=== PATIENT | male | born 1990 | race African-American/Black ===

== ENCOUNTER 2020-11-04 11:57 | Emergency (ER) | payer BC ==
[2020-11-04 12:38] VITALS: BP 133/77; PULSE 70; RESP 18; TEMP 98
--- NOTE | 2020-11-04 12:40 | ED ---
General Adult HPI - General Stated complaint: back pain Time Seen by Provider: 11/04/20 12:35 Source: patient, RN notes reviewed Mode of arrival: ambulatory Limitations: no limitations - History of Present Illness Initial comments: 30-year-old male presents emergency Department Department for low back pain. Patient states his messing around with his nieces states that the step down her back. 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 Patient states that he has no bowel bladder incontinence or retention or saddle anesthesias. Patient is requesting work no. - Related Data Previous Rx's Medication Instructions Recorded Cephalexin [Keflex] 500 mg PO Q6HR #28 cap 07/09/15 Allergies Allergy/AdvReac Type Severity Reaction Status Date / Time No Known Allergies Allergy Verified 11/04/20 12:35 Review of Systems ROS Statement: Those systems with pertinent positive or pertinent negative responses have been documented in the HPI. ROS Other: All systems not noted in ROS Statement are negative. Past Medical History Past Medical History: No Reported History History of Any Multi-Drug Resistant Organisms: None Reported Past Surgical History: No Surgical Hx Reported Past Psychological History: No Psychological Hx Reported Smoking Status: Current every day smoker Past Alcohol Use History: Occasional Past Drug Use History: Marijuana General Exam Limitations: no limitations General appearance: alert, in no apparent distress Head exam: Present: atraumatic, normocephalic, normal inspection ENT exam: Present: normal exam, normal oropharynx, mucous membranes moist Neck exam: Present: normal inspection, full ROM. Absent: tenderness, meningismus, lymphadenopathy Respiratory exam: Present: normal lung sounds bilaterally. Absent: respiratory distress, wheezes, rales, rhonchi, stridor Cardiovascular Exam: Present: regular rate, normal rhythm, normal heart sounds. Absent: systolic murmur, diastolic murmur, rubs, gallop, clicks Back exam: Present: normal inspection, full ROM, tenderness, paraspinal tenderness. Absent: vertebral tenderness Neurological exam: Present: alert, oriented X3, CN II-XII intact Skin exam: Present: warm, dry, intact, normal color. Absent: rash Course Vital Signs 11/04/20 12:36 Temperature 98 F Pulse Rate 70 Respiratory 18 Rate Blood Pressure 133/77 O2 Sat by Pulse 100 Oximetry Medical Decision Making - Medical Decision Making Patient is stable for discharge. Patient has no red flag symptoms. Patient has a lumbar strain. Return parameters were discussed. Disposition Clinical Impression: Lumbar pain Disposition: HOME SELF-CARE Condition: Stable Instructions (If sedation given, give patient instructions): Back Pain (ED) Additional Instructions: Please return to the Emergency Department if symptoms worsen or any other concerns. Is patient prescribed a controlled substance at d/c from ED?: No Referrals: None,Stated [Primary Care Provider] - 1-2 days Time of Disposition: 12:39
== END 2020-11-04 12:45 | disposition home or self-care (01) ==
LOC: EC 11:57
DX: M54.5 Low back pain (principal); F17.200 Nicotine dependence, unspecified, uncomplicated; F12.90 Cannabis use, unspecified, uncomplicated
CPT/HCPCS: 99283

== ENCOUNTER 2021-03-31 18:50 | Emergency (ER) | payer BC, OTHER ==
[2021-03-31 19:30] VITALS: BP 133/82; PULSE 91; RESP 18; TEMP 98.1
[2021-03-31] MEDS ORDERED: ACET/COD 300 MG/30 MG STARTER PACK 6 TAB BTL PO STA (20:04)
[2021-03-31] MEDS ORDERED: PENICILLIN V POTASSIUM 250 MG TAB PO STA (20:04)
--- NOTE | 2021-03-31 20:05 | ED ---
ENT HPI - General Chief complaint: Dental/Oral Stated complaint: dental abscess Time Seen by Provider: 03/31/21 19:41 Source: patient, RN notes reviewed Mode of arrival: ambulatory Limitations: no limitations - History of Present Illness Initial comments: 30-year-old male presents emergency Department chief complaint of dental pain. Patient states his started overnight. He did have some soreness 3 days ago but states the swelling started. No difficulty breathing or swallowing patient has no fevers chills no other complaints he did take some Tylenol which improved her symptoms. - Related Data Previous Rx's Medication Instructions Recorded Cephalexin [Keflex] 500 mg PO Q6HR #28 cap 07/09/15 Ibuprofen [Motrin] 600 mg PO Q8HR PRN #20 tab 03/31/21 Penicillin V Potassium [Pen Vee K] 500 mg PO QID #40 tablet 03/31/21 Allergies Allergy/AdvReac Type Severity Reaction Status Date / Time No Known Allergies Allergy Verified 03/31/21 19:29 Review of Systems ROS Statement: Those systems with pertinent positive or pertinent negative responses have been documented in the HPI. ROS Other: All systems not noted in ROS Statement are negative. Past Medical History Past Medical History: No Reported History History of Any Multi-Drug Resistant Organisms: None Reported Past Surgical History: No Surgical Hx Reported Past Psychological History: No Psychological Hx Reported Smoking Status: Current every day smoker Past Alcohol Use History: Occasional Past Drug Use History: Marijuana General Exam Limitations: no limitations General appearance: alert, in no apparent distress Head exam: Present: atraumatic, normocephalic, normal inspection Eye exam: Present: normal appearance, PERRL, EOMI. Absent: scleral icterus, conjunctival injection, periorbital swelling ENT exam: Present: mucous membranes moist. Absent: normal oropharynx (Swallowing right lower mandibular region, poor dentition no drainable abscess) Neck exam: Present: normal inspection. Absent: tenderness, meningismus, lymphadenopathy Respiratory exam: Present: normal lung sounds bilaterally. Absent: respiratory distress, wheezes, rales, rhonchi, stridor Cardiovascular Exam: Present: regular rate, normal rhythm, normal heart sounds. Absent: systolic murmur, diastolic murmur, rubs, gallop, clicks Course Vital Signs 03/31/21 19:29 Temperature 98.1 F Pulse Rate 91 Respiratory 18 Rate Blood Pressure 133/82 O2 Sat by Pulse 99 Oximetry Medical Decision Making - Medical Decision Making Patient we treated for underlying dental infection. Patient started on Pen-Vee K was given Tylenol codeine and return parameters discussed. Disposition Clinical Impression: Dental abscess Disposition: HOME SELF-CARE Condition: Stable Instructions (If sedation given, give patient instructions): Dental Abscess (ED) Additional Instructions: Please return to the Emergency Department if symptoms worsen or any other concerns. Prescriptions: Ibuprofen [Motrin] 600 mg PO Q8HR PRN #20 tab PRN Reason: Pain Penicillin V Potassium [Pen Vee K] 500 mg PO QID #40 tablet Is patient prescribed a controlled substance at d/c from ED?: No Referrals: None,Stated [Primary Care Provider] - 1-2 days Time of Disposition: 20:05
== END 2021-03-31 20:23 | disposition home or self-care (01) ==
LOC: EC 18:50
DX: K04.7 Periapical abscess without sinus (principal); F17.200 Nicotine dependence, unspecified, uncomplicated
CPT/HCPCS: 99282

== ENCOUNTER 2021-07-23 11:42 | Emergency (ER) | payer OTHER ==
[2021-07-23 12:48] VITALS: BP 121/78; PULSE 75; RESP 20; TEMP 97.8
--- NOTE | 2021-07-23 13:50 | ED ---
ENT HPI - General Chief complaint: ENT Stated complaint: tooth pain/need note for work Time Seen by Provider: 07/23/21 13:46 Source: patient, RN notes reviewed Mode of arrival: ambulatory Limitations: no limitations - History of Present Illness Initial comments: 31-year-old male presents from chief complaint of needing a work note. Patient states is currently being treated for dental states that he did not receive a work note. Patient denies any complaints. Patient states that his pain is improving abscesses improving. - Related Data Previous Rx's Medication Instructions Recorded Cephalexin [Keflex] 500 mg PO Q6HR #28 cap 07/09/15 Ibuprofen [Motrin] 600 mg PO Q8HR PRN #20 tab 03/31/21 Penicillin V Potassium [Pen Vee K] 500 mg PO QID #40 tablet 03/31/21 Allergies Allergy/AdvReac Type Severity Reaction Status Date / Time No Known Allergies Allergy Verified 07/23/21 12:46 Review of Systems ROS Statement: Those systems with pertinent positive or pertinent negative responses have been documented in the HPI. ROS Other: All systems not noted in ROS Statement are negative. Past Medical History Past Medical History: No Reported History History of Any Multi-Drug Resistant Organisms: None Reported Past Surgical History: No Surgical Hx Reported Past Psychological History: No Psychological Hx Reported Smoking Status: Current every day smoker Past Alcohol Use History: None Reported, Occasional Past Drug Use History: Marijuana General Exam Limitations: no limitations General appearance: alert, in no apparent distress Head exam: Present: atraumatic, normocephalic, normal inspection Eye exam: Present: normal appearance, PERRL, EOMI. Absent: scleral icterus, conjunctival injection, periorbital swelling ENT exam: Present: mucous membranes moist, TM's normal bilaterally. Absent: normal oropharynx (Edentulous, right lower mandible or swelling) Neck exam: Present: normal inspection, full ROM. Absent: tenderness, meningismus, lymphadenopathy Respiratory exam: Present: normal lung sounds bilaterally. Absent: respiratory distress, wheezes, rales, rhonchi, stridor Course Vital Signs 07/23/21 12:46 Temperature 97.8 F Pulse Rate 75 Respiratory 20 Rate Blood Pressure 121/78 O2 Sat by Pulse 100 Oximetry Medical Decision Making - Medical Decision Making Patient current treatment for dental abscess will continue current treatment return parameters were discussed. Disposition Clinical Impression: Dental abscess Disposition: HOME SELF-CARE Condition: Stable Instructions (If sedation given, give patient instructions): Dental Abscess (ED) Additional Instructions: Please return to the Emergency Department if symptoms worsen or any other concerns. Is patient prescribed a controlled substance at d/c from ED?: No Referrals: None,Stated [Primary Care Provider] - 1-2 days Time of Disposition: 13:50
== END 2021-07-23 13:56 | disposition home or self-care (01) ==
LOC: EC 11:42
DX: K04.7 Periapical abscess without sinus (principal); F17.200 Nicotine dependence, unspecified, uncomplicated
CPT/HCPCS: 99282

== ENCOUNTER 2021-12-02 20:47 | Emergency (ER) | payer OTHER ==
[2021-12-02 21:17] VITALS: BP 126/81; PULSE 83; RESP 14; TEMP 98.1
--- NOTE | 2021-12-02 23:24 | ED ---
General Adult HPI - General Chief complaint: Recheck/Abnormal Lab/Rx Stated complaint: Dental Pain Time Seen by Provider: 12/02/21 23:15 Source: patient, RN notes reviewed, old records reviewed Mode of arrival: ambulatory Limitations: no limitations - History of Present Illness Initial comments: 31-year-old male presents with complaints of dental abscess states has an appointment with dentist tomorrow at 1:00 but did not want to go to work today so he is here for a work note. Patient denies any fevers, no nausea vomiting or diarrhea. States he does have a slight headache. He is a daily smoker. -: days(s) Location: mouth (right upper dental abscess tooth #3 gingival) Radiation: non-radiation Severity scale (1-10): 5 Quality: aching Consistency: constant Associated Symptoms: headaches Treatments Prior to Arrival: none - Related Data Previous Rx's Medication Instructions Recorded Cephalexin [Keflex] 500 mg PO Q6HR #28 cap 07/09/15 Ibuprofen [Motrin] 600 mg PO Q8HR PRN #20 tab 03/31/21 Penicillin V Potassium [Pen Vee K] 500 mg PO QID #40 tablet 03/31/21 Penicillin V Potassium [Pen Vee K] 500 mg PO QID #40 tablet 12/02/21 Allergies Allergy/AdvReac Type Severity Reaction Status Date / Time No Known Allergies Allergy Verified 12/02/21 21:17 Review of Systems ROS Statement: Those systems with pertinent positive or pertinent negative responses have been documented in the HPI. ROS Other: All systems not noted in ROS Statement are negative. Past Medical History Past Medical History: No Reported History History of Any Multi-Drug Resistant Organisms: None Reported Past Surgical History: No Surgical Hx Reported Past Psychological History: No Psychological Hx Reported Smoking Status: Current every day smoker Past Alcohol Use History: None Reported, Occasional Past Drug Use History: Marijuana General Exam Limitations: no limitations General appearance: alert, in no apparent distress Head exam: Present: atraumatic Eye exam: Present: normal appearance. Absent: scleral icterus, conjunctival injection ENT exam: Present: mucous membranes moist, other (Dental caries, gingival abscess above tooth #3) Neck exam: Present: normal inspection, full ROM, lymphadenopathy (Right submandibular) Respiratory exam: Present: normal lung sounds bilaterally. Absent: respiratory distress, accessory muscle use Cardiovascular Exam: Present: regular rate Neurological exam: Present: alert, oriented X3 Psychiatric exam: Present: normal affect, normal mood Skin exam: Present: warm, dry Course Vital Signs 12/02/21 21:15 Temperature 98.1 F Pulse Rate 83 Respiratory 14 Rate Blood Pressure 126/81 O2 Sat by Pulse 99 Oximetry Medical Decision Making - Medical Decision Making Patient presents to emergency room with dental abscess a has an appointment with dentist tomorrow at 1:00. He is requesting just a work note. Patient denies fevers, nausea or vomiting but does have submandibular lymphadenopathy therefore will be prescribed penicillin. There is no drainable abscess. Disposition Clinical Impression: Dental abscess, Dental caries Disposition: HOME SELF-CARE Condition: Good Instructions (If sedation given, give patient instructions): Dental Abscess (ED) Additional Instructions: Take antibiotics as prescribed. Keep your appointment with the dentist tomorrow. Return to the emergency room for new or concerning symptoms Prescriptions: Penicillin V Potassium [Pen Vee K] 500 mg PO QID #40 tablet Is patient prescribed a controlled substance at d/c from ED?: No Referrals: None,Stated [Primary Care Provider] - 1-2 days Time of Disposition: 23:24
[2021-12-02] MEDS ORDERED: IBUPROFEN 400 MG TAB PO STA (23:42)
== END 2021-12-03 00:24 | disposition home or self-care (01) ==
LOC: EC 20:47
DX: K04.7 Periapical abscess without sinus (principal); K02.9 Dental caries, unspecified; F17.200 Nicotine dependence, unspecified, uncomplicated
CPT/HCPCS: 99283

== ENCOUNTER 2022-01-06 22:50 | Emergency (ER) | payer OTHER ==
[2022-01-06 23:00] VITALS: BP 117/72; PULSE 91; RESP 16; TEMP 98.3
--- NOTE | 2022-01-07 04:16 | ED ---
Back Pain HPI - General Chief Complaint: Back Pain/Injury Stated Complaint: lower back pain Time Seen by Provider: 01/07/22 03:39 Source: patient Limitations: no limitations - History of Present Illness Initial Comments: This patient is a 31-year-old man who presents to be evaluated for right lower back pain. Patient states that she noticed it had come on yesterday after he preciado d moved large roll of foam at work. Patient states that over the course of past few hours his back has tightened. He is not having any weakness or numbness of the extremities. No change in bladder or bowel function, no saddle anesthesia. No abdominal pain. The patient states this is very similar to back pains that he sometimes gets and that he usually has improvement after seeing chiropractor. MD Complaint: back pain, back injury Onset/Timin -: days(s) Place: work Radiation: none Severity: moderate Quality: aching Consistency: constant Improves With: none Worsens With: movement Associated Symptoms: denies other symptoms - Related Data Previous Rx's Medication Instructions Recorded Cephalexin [Keflex] 500 mg PO Q6HR #28 cap 07/09/15 Ibuprofen [Motrin] 600 mg PO Q8HR PRN #20 tab 03/31/21 Penicillin V Potassium [Pen Vee K] 500 mg PO QID #40 tablet 03/31/21 Penicillin V Potassium [Pen Vee K] 500 mg PO QID #40 tablet 12/02/21 Allergies Allergy/AdvReac Type Severity Reaction Status Date / Time No Known Allergies Allergy Verified 01/06/22 22:56 Review of Systems ROS Statement: Those systems with pertinent positive or pertinent negative responses have been documented in the HPI. ROS Other: All systems not noted in ROS Statement are negative. Constitutional: Denies: fever, chills, weakness Respiratory: Denies: dyspnea Cardiovascular: Denies: chest pain Gastrointestinal: Denies: abdominal pain, vomiting, diarrhea, constipation Genitourinary: Denies: dysuria, hematuria, testicular pain, testicular mass Musculoskeletal: Reports: back pain Neurological: Denies: weakness, numbness, paresthesias Past Medical History Past Medical History: No Reported History History of Any Multi-Drug Resistant Organisms: None Reported Past Surgical History: No Surgical Hx Reported Past Psychological History: No Psychological Hx Reported Smoking Status: Current every day smoker Past Alcohol Use History: None Reported, Occasional Past Drug Use History: Marijuana General Exam Limitations: no limitations General appearance: alert, in no apparent distress Head exam: Present: atraumatic, normocephalic Respiratory exam: Present: normal lung sounds bilaterally. Absent: respiratory distress, wheezes, rales, rhonchi, stridor Cardiovascular Exam: Present: regular rate, normal rhythm, normal heart sounds. Absent: systolic murmur, diastolic murmur, rubs, gallop GI/Abdominal exam: Present: soft. Absent: distended, tenderness, guarding, rebound, rigid, pulsatile mass Back exam: Present: normal inspection, muscle spasm, paraspinal tenderness (Right-sided). Absent: CVA tenderness (R), CVA tenderness (L), vertebral tenderness Neurological exam: Present: alert, reflexes normal. Absent: motor sensory deficit Skin exam: Present: warm, dry, intact, normal color. Absent: rash Course Vital Signs 01/06/22 22:57 Temperature 98.3 F Pulse Rate 91 Respiratory 16 Rate Blood Pressure 117/72 O2 Sat by Pulse 98 Oximetry Disposition Clinical Impression: Back pain Disposition: HOME SELF-CARE Condition: Good Instructions (If sedation given, give patient instructions): Acute Low Back Pain (ED) Is patient prescribed a controlled substance at d/c from ED?: No Referrals: None,Stated [Primary Care Provider] - 1-2 days
== END 2022-01-07 04:25 | disposition home or self-care (01) ==
LOC: EC 22:50
DX: M54.50 Low back pain, unspecified (principal); F17.200 Nicotine dependence, unspecified, uncomplicated
CPT/HCPCS: 99283